=== PATIENT | female | born 1990 ===

== ENCOUNTER 2023-06-08 10:00 | Inpatient (IN) | payer OTHER ==
[~2023-06-08] VITALS: Ht 162.6 cm; Wt 72.6 kg
[~2023-06-08 10:00] MED LIST: PLAQUENIL PO
[2023-06-28] MEDS ORDERED: POVIDONE-IODINE 118 ML BOTT TOP ONE (07:20)
[2023-06-28] MEDS ORDERED: CEFAZOLIN SODIUM 1,000 MG VIAL IV SCH ×2 (08:15→12:00)
[2023-06-28] MEDS ORDERED: POVIDONE-IODINE 118 ML BOTT TOP SCH (08:15)
[2023-06-28] MEDS ORDERED: HYDROXYCHLOROQ200 MG (08:37)
[2023-06-28] MEDS ORDERED: HEMOSTATIC MATRIX 1 KIT KIT TOP ONE (08:47)
[2023-06-28] MEDS ORDERED: HEMOSTATIC MATRIX 1 KIT KIT TOP SCH (09:00)
[2023-06-28] MEDS ORDERED: ONDANSETRON HCL 2 MG/ML VIAL IV PRN (09:30)
[2023-06-28] MEDS ORDERED: RINGERS SOLUTION,LACTATED 1,000 ML IV SCH (09:45)
[2023-06-28] MEDS ORDERED: MORPHINE SULFATE 4 MG,MORPHINE SULFATE 2 MG IV PRN (09:45)
[2023-06-28] MEDS ORDERED: ONDANSETRON HCL 2 MG/ML VIAL ONE (10:59)
[2023-06-28] MEDS ORDERED: CEFAZOLIN SODIUM 1,000 MG VIAL ONE (11:05)
[2023-06-28] MEDS ORDERED: HYDROXYCHLOROQUINE SULFATE 200 MG TABLET PO STA ×2 (13:11→13:13)
[2023-06-28 15:00] LABS: HEMOGLOBIN 12.3 g/dL (12.0-15.00); MEAN CELL VOLUME 91.1 fL (80.00-100.00); MEAN CORPUSCULAR HEMOGLOBIN 31.9 pg (27.00-32.0); PLATELET COUNT 210 K/uL (150-450); RED BLOOD COUNT 3.84 M/uL (4.00-6.00); RED CELL DISTRIBUTION WIDTH 12.7 % (11.5-14.5)
[2023-06-29] MEDS ORDERED: OxyCODONE HCL/APAP UD (PERCOCET) PO PRN (06:45)
[2023-06-29] MEDS ORDERED: HYDROXYCHLOROQUINE SULFATE 200 MG TABLET PO SCH (09:00)
[2023-06-29] MEDS ORDERED: ENOXAPARIN SODIUM 40 MG/0.4 ML SYRINGE SUBCUTANEO SCH (09:00)
[2023-06-30] MEDS ORDERED: NAPROXEN 500 MG TABLET PO SCH (10:00)
== END 2023-06-30 10:58 | disposition home or self-care (01) | DRG 743 ==
LOC: SURH 06-14 08:04 → OB/GYN 06-28 06:43 → O/R 06-28 06:43 → SURH 06-28 07:00 → OB/GYN 06-28 10:01 → SURH 06-28 15:30 → OB/GYN 06-30 10:58
PROVIDERS: Obstetrics & Gynecology Gynecology; ADMIT Specialist; ATTEND Specialist
PROC: 0UT70ZZ Resection of Bilateral Fallopian Tubes, Open Approach (ICD-10-PCS; 2023-06-28)
PROC: 0USG0ZZ Reposition Vagina, Open Approach (ICD-10-PCS; 2023-06-28)
PROC: 0UT90ZZ Resection of Uterus, Open Approach (ICD-10-PCS; principal; 2023-06-28 07:00)
DX: N72 Inflammatory disease of cervix uteri (principal); Z20.822 Contact with and (suspected) exposure to COVID-19